=== PATIENT | female | born 1955 | race African-American/Black ===

== ENCOUNTER 2017-01-27 02:06 | Emergency (ER) | payer BC, MEDICAID ==
[~2017-01-27] VITALS: Ht 167.6 cm; Wt 82.0 kg
[2017-01-27] MEDS ORDERED: MORPHINE SULFATE 10 MG/ML CPJ IM ONE (03:45)
[2017-01-27] MEDS ORDERED: ONDANSETRON HCL 4MG/2ML VIAL IM ONE (03:45)
[2017-01-27 04:02] VITALS: BP 116/78
== END 2017-01-27 04:54 | disposition home or self-care (01) ==
LOC: ER 02:10
DX: M54.31 Sciatica, right side (principal)
CPT/HCPCS: 96372; 99284; J2270; J2405

== ENCOUNTER 2024-12-03 17:59 | Emergency (ER) | payer MEDICARE, MEDICAID ==
[~2024-12-03] VITALS: Ht 170.2 cm; Wt 92.0 kg
[2024-12-03 18:02] VITALS: TEMP 36.7; O2SAT 99
[2024-12-03] MEDS: HYDROCODONE/ACETAMINOPHEN 5/325MG TABLET PO ONE (20:27)
[2024-12-03] MEDS: KETOROLAC 30MG/ML VIAL IM ONE (20:30)
[2024-12-03] MEDS ORDERED: HYDR-4001 MT (20:32)
[2024-12-03] MEDS ORDERED: PERM60CR4 TP (20:32)
[2024-12-03] MEDS ORDERED: DICL75TA5 MT (20:35)
[2024-12-03] MEDS ORDERED: CYCL5TAB3 MT (20:35)
[2024-12-03 20:52] VITALS: BP 159/81; PULSE 64; RESP 12; O2SAT 99
== END 2024-12-03 21:08 | disposition home or self-care (01) ==
LOC: ER 17:59
DX: M54.50 Low back pain, unspecified (principal); E11.9 Type 2 diabetes mellitus without complications; F17.200 Nicotine dependence, unspecified, uncomplicated; F14.90 Cocaine use, unspecified, uncomplicated; M19.90 Unspecified osteoarthritis, unspecified site; Z98.890 Other specified postprocedural states; Z79.899 Other long term (current) drug therapy
CPT/HCPCS: 99284; 96372; J1885; A4606

== ENCOUNTER 2025-06-28 13:40 | Emergency (ER) | payer MEDICARE, MEDICAID ==
[~2025-06-28] VITALS: Ht 170.2 cm; Wt 86.0 kg
[~2025-06-28 13:40] MED LIST: CYCL5TAB3 MT; DICL75TA5 MT; PERM60CR20 TP
[2025-06-28 13:43] VITALS: O2SAT 100
[2025-06-28 15:07] LABS: BASOPHILS % 0.5 % (0.0-2.0); EOSINOPHILS % 1.7 % (0.0-5.0); HEMATOCRIT. 42.2 % (36.0-48.0); HEMOGLOBIN. 14.1 g/dL (12.0-16.0); LYMPHOCYTES % 32.8 % (20.0-50.0); MEAN PLATELET VOLUME 8.5 fl (7.4-10.4); MONOCYTES % 5.1 % (2.0-8.0); NEUTROPHILS % 59.9 % (40.0-76.0); PLATELET 324 x1000/uL (130-400); RED BLOOD CELL COUNT 4.88 mill/uL (4.2-5.4); RED CELL DISTRIBUTION WIDTH 17.6 % (11.6-14.6)
[2025-06-28 15:27] LABS: CREATININE 1.0 mg/dL (0.6-1.0); TROPONIN I HIGH SENSITIVITY 4 ng/L (3.0-34); UREA NITROGEN BLOOD 8 mg/dL (9-23)
[2025-06-28] MEDS: MORPHINE SULFATE 4 MG/ML INJ (FOR IV/IM USE) IV ONE (17:21)
[2025-06-28 17:30] VITALS: BP 122/76; PULSE 74; RESP 16; TEMP 36.7; O2SAT 99
== END 2025-06-28 19:23 | disposition left against medical advice (07) ==
LOC: ER 13:40 → CMPBEDREQ 06-29 07:22
DX: M54.9 Dorsalgia, unspecified (principal); M54.2 Cervicalgia; M79.605 Pain in left leg; E11.9 Type 2 diabetes mellitus without complications; Z88.6 Allergy status to analgesic agent; W10.9XXA Fall (on) (from) unspecified stairs and steps, initial encounter; Y93.89 Activity, other specified; Y92.89 Other specified places as the place of occurrence of the external cause; Y99.8 Other external cause status
CPT/HCPCS: 36415; 71045; 72128; 72131; 80048; 84484; 85025; 99284; A4606; J2270